=== PATIENT | female | born 1975 | race Asian ===

== ENCOUNTER 2023-01-06 06:07 | Day surgery (SDC) | payer OTHER ==
[~2023-01-06] VITALS: Ht 165.1 cm; Wt 68.0 kg
[2023-01-06 06:42] LABS: HCG,QUAL RESULT NEGATIVE (NEGATIVE)
[2023-01-06 07:36] VITALS: O2SAT 97
[2023-01-06] MEDS ORDERED: MEPERIDINE 100 MG INJ. 100 MG/ML VIAL ONE (07:50)
[2023-01-06] MEDS ORDERED: MIDAZOLAM HCL 5 MG/5 ML VIAL ONE (07:51)
[2023-01-06 13:08] VITALS: BP_SYST 104; PULSE 78; RESP 13
== END 2023-01-06 09:47 | disposition home or self-care (01) ==
LOC: SDS 06:07 → SMU 06:08 → SDS 09:47
PROVIDERS: ATTEND Internal Medicine Gastroenterology
DX: R19.4 Change in bowel habit (principal); K64.9 Unspecified hemorrhoids
CPT/HCPCS: 45378; 99152; 84703; G0378; J2250; J2175